=== PATIENT | female | born 1985 | race Caucasian/White ===

== ENCOUNTER → 2017-08-13 | Outpatient (CLI) | payer BC ==
--- NOTE | 2017-08-13 08:25 | US ---
EXAMINATION TYPE: US liver DATE OF EXAM: 08/13/2017 COMPARISON: CT chest dated 02/07/2014 and ultrasound liver dated 03/01/2014. CLINICAL HISTORY: D18.09 Hemangioma of other sites. EXAM MEASUREMENTS: Liver Length: 15.8 cm Gallbladder Wall: 0.2 cm CBD: 0.2 cm Right Kidney: 10.8 x 5.3 x 5.1 cm Pancreas: wnl Liver: subtle echogenic area noted at right lobe near IVC measures 3.2 x 2.8 x 3.1 cm and previously measured 3.1 x 2.0 x 2.3 cm on the prior exam of 03/01/2014. Gallbladder: wnl Evidence for sonographic Ramirez's sign: no CBD: wnl Right Kidney: wnl IMPRESSION: Interval growth of the hyperechoic hepatic mass within the medial aspect of segment 8 of the liver near the intrahepatic inferior vena cava. Again CT characteristics are not compatible with a typical hemangioma. Therefore three-phase CT abdomen (liver mass protocol) or MRI are recommended f or further characterization.
== END | disposition home or self-care (01) ==
LOC: RADUSWWP 07:03
PROVIDERS: ATTEND Family Medicine
DX: D18.09 Hemangioma of other sites (principal)
CPT/HCPCS: 76705

== ENCOUNTER → 2017-09-03 | Outpatient (CLI) | payer BC ==
--- NOTE | 2017-09-03 23:36 | MR ---
EXAMINATION TYPE: MR liver wo/w con DATE OF EXAM: 09/03/2017 COMPARISON: NONE HISTORY: Refer to US of Liver, Gadavist 7.0 follow-up liver lesion seen on ultrasound exam. CONTRAST: Standard multiplanar, multisequence MRI departmental protocol utilizing 7.0 mL intravenous Gadavist g adolinium contrast. FINDINGS: On the T2 images there is a 8 mm area of increased echogenicity in the left lobe of the elaine er. There is a similar 12 mm focus in the anterior right lobe of the liver. There is a similar 16 mm focus in the central right lobe of the liver. The bile ducts are not dilated. Spleen appears normal. Kidneys have normal size and contour. There is no hydronephrosis. Gallbladder appears normal. Pancrea s appears normal. There is no ascites. There is no pathologic enhancement. No discrete liver abnormal ity is identified on the T1-weighted images. There is no adrenal mass. IMPRESSION: There is a 3 cm area of increased echogenicity in the right lobe of the liver on the recent ultrasoun d exam of 08/13/2017. This exam fails to characterize this ultrasound finding. There are on the T2 imag es 3 subtle foci in the liver with increased signal that are not characterized or seen on the other i mages and are of doubtful significance. The ultrasound finding 3 cm could relate to area of focal fat ty infiltration. I do not think any further surveillance is needed.
== END | disposition home or self-care (01) ==
LOC: RADMRIMAIN 20:08
PROVIDERS: ATTEND Family Medicine
DX: R93.2 Abnormal findings on diagnostic imaging of liver and biliary tract (principal)
CPT/HCPCS: 74183; A9581

== ENCOUNTER → 2021-05-31 | Outpatient (CLI) | payer OTHER ==
--- NOTE | 2021-05-31 10:42 | US ---
EXAMINATION TYPE: Ultrasound OB <= 14 week fetus DATE OF EXAM: 05/31/2021 7:39 AM COMPARISON: NONE CLINICAL HISTORY: 36-year-old female Z36.89 Confirm dates. EXAM PERFORMED: Transabdominal (TA) FINDINGS: EXAM MEASUREMENTS: GESTATIONAL AGE / DATING Physician Established: Not established ( Dates by LMP: (8 weeks/1 days) EDC: 01/09/22 Dates by First Scan: No previous Dates by Current Scan for: (8 weeks/ 5 days) EDC: 01/07/22 MATERNAL ANATOMY Uterus: 12.2 x 5.8 x5.0 cm Right Ovary: 3.7 x 2.2 x 2.2 cm Left Ovary: 2.0 x 3.0 x 2.4 cm Post CDS / Adnexa: No gross abnormality Presence of free fluid: None Presence of corpus luteal cyst: Yes, on right = 2.0 x 1.8 x 1.9 cm Presence of subchorionic bleed: small, 6mm inferior to gestational sac GESTATION / SURVEY CRL: 2.2 (8 weeks/ 6 days) MSD: 2.7 ( 8 weeks/0 days) Yolk Sac (normal less than 6mm): 0.5 cm Heart Rate: 167 bpm Rhythm: Normal IUP: Viable IUP Date of LMP: 04/04/21 IMPRESSION: 1. Single live intrauterine with estimated gestational age of 8 weeks 1 day by LMP. Current ultrasound biometry is concordant (8 weeks 5 days) by CRL. 2. Tiny 6 mm perigestational bleed along the inferior margin of the gestational sac. 3. A 2.0 cm corpus luteum of the right ovary. 4. Complete survey recommended at 18-20 weeks.
== END | disposition home or self-care (01) ==
LOC: RADUSWWP 07:06
PROVIDERS: ATTEND Obstetrics & Gynecology
DX: Z36.89 Encounter for other specified antenatal screening (principal); Z3A.08 8 weeks gestation of pregnancy
CPT/HCPCS: 76801

== ENCOUNTER → 2021-08-16 | Outpatient (CLI) | payer OTHER ==
--- NOTE | 2021-08-16 15:59 | US ---
EXAMINATION TYPE: US OB anatomy transabd DATE OF EXAM: 08/16/2021 COMPARISON: 05/31/2021 HISTORY: 36-year-old female O36.62X0 LARGE FOR DATES. G1. TECHNIQUE: Transabdominal (TA) Utility System Repairer: DEIRDRE/GRIS FINDINGS: EXAM MEASUREMENTS: GESTATIONAL AGE / DATING Physician Established: Not yet established. Dates by LMP: (19 weeks/1 day) EDC: 01/09/2022 Dates by First Scan: (19 weeks/3 days) EDC: 01/07/2022 Dates by Current Scan for: (19 weeks/4 days) EDC: 01/06/2022 SURVEY IUP: Single PLACENTA: Posterior. Hypoechoic area seen: 1.5 x 1.2 x 1.2 cm. PREVIA: Either low lying or marginal placenta previa. On post void, the inferior placental margin see ms to measure 1 cm from the internal cervical os. TIARA: 12.5 cm Normal CERVICAL LENGTH (transabdominal: norm > 3.0cm): 4.1 cm BIOMETRY PRESENTATION: Variable LIE: Transverse lie with head maternal Left, although variable position throughout exam. BPD: 4.54 cm 19 weeks / 5 days HC: 16.55 cm 19 weeks / 2 days AC: 15.22 cm 20 weeks / 3 days FL: 3.19 cm 19 weeks / 6 days ESTIMATED WEIGHT IN GRAMS: 331.66 grams ESTIMATED WEIGHT IN LBS/OZ: 0 lbs. 12 oz. WEIGHT PERCENTAGE BASED ON ESTABLISHED DATE: 82.5 % HC/AC: 1.09 Normal FL/AC: 20.98 HEART RATE: 157 bpm RHYTHM: Normal ANATOMY SEEN (within normal limits): Lateral Vent (< 1 cm) 0.73 cm Cisterna Magna (< 1.1 cm) 0.60 cm Nuchal Fold (< 0.6 cm) 0.36 cm Cerebellum (varies with age) 1.93 cm Choroid Plexus (bilateral) Midline Falx Cavus Septi Pellucidi Four Chamber Heart Outflow tracts: LVOT/RVOT Stomach Situs Nose / Lips Diaphragm Kidneys (bilateral) Bladder Cord Insert Three Vessel Cord Longitudinal Spine Transverse Spine Arms (bilateral) Legs (bilateral) IMPRESSION: 1. Single living intrauterine with estimated gestational age of 19 weeks 1 day by LMP. Curr ent ultrasound biometry is concordant at 19 weeks 4 days (82.5% EFW). 2. Posterior placenta with low-lying to marginal placenta previa. On postvoid, the inferior placental tip measures approximately 1 cm from the internal cervical os. 3. A 1.5 cm hypoechoic area within the substance of the placenta. Possible venous marlow or chorioangio ma. Attention on follow-up. 4. The visualized structures appear normal.
== END | disposition home or self-care (01) ==
LOC: RADUSWWP 08:19
PROVIDERS: ATTEND Obstetrics & Gynecology
DX: O36.62X0 Maternal care for excessive fetal growth, second trimester, not applicable or unspecified (principal); Z3A.19 19 weeks gestation of pregnancy
CPT/HCPCS: 76811

== ENCOUNTER → 2021-11-16 | Outpatient (CLI) | payer OTHER ==
--- NOTE | 2021-11-16 10:20 | US ---
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 4 oz. WEIGHT PERCENTAGE BASED ON ESTABLISHED DATES: 93% HC/AC: 1.0 Normal FL/AC: 22 Normal HEART RATE: 149 bpm RHYTHM: Normal IMPRESSION: Single viable intrauterine .
== END | disposition home or self-care (01) ==
LOC: RADUSWWP 09:34
PROVIDERS: ATTEND Obstetrics & Gynecology
DX: O44.43 Low lying placenta NOS or without hemorrhage, third trimester (principal); O36.63X0 Maternal care for excessive fetal growth, third trimester, not applicable or unspecified; Z3A.35 35 weeks gestation of pregnancy
CPT/HCPCS: 76805

== ENCOUNTER → 2021-12-07 | Outpatient (CLI) | payer OTHER ==
--- NOTE | 2021-12-07 10:14 | US ---
EXAMINATION TYPE: US OB >= 14 wk fetus DATE OF EXAM: 12/07/2021 COMPARISON: Multiple US's, most recent dated 11/16/2021 CLINICAL HISTORY: O44.43 LOW LYING DEBRA,O36.63X0 EXCESS GROWTH, TECHNIQUE: Transabdominal (TA) GESTATIONAL AGE / DATING Physician Established: (35 weeks/2 days) EDC: 01/09/2022 Dates by LMP: (35 weeks/2 days) EDC: 01/09/2022 Dates by First Scan: (35 weeks/4 days) EDC: 01/07/2022 Dates by Current Scan: (37 weeks/2 days) EDC: 12/26/2021 SURVEY IUP: Single PLACENTA: Posterior PREVIA: No Previa TIARA: 16.2 cm Normal CERVICAL LENGTH (transabdominal: norm > 3.0cm): 3.5 cm BIOMETRY PRESENTATION: Vertex BPD: 9.2 cm 37 weeks / 3 days HC: 32.8 cm 37 weeks / 2 days AC: 34.4 cm 38 weeks / 3 days FL: 7.0 cm 36 weeks / 0 days ESTIMATED WEIGHT IN GRAMS: 3233 grams ESTIMATED WEIGHT IN LBS/OZ: 7 lbs. 2 oz. WEIGHT PERCENTAGE BASED ON ESTABLISHED DATES: 95% HC/AC: 0.95 Normal FL/AC: 20 Normal HEART RATE: 136 bpm RHYTHM: Normal Single viable IUP that measures two weeks ahead of patient's EDC. IMPRESSION: 1. Single intrauterine gestation estimated at 37 weeks 2 days gestation based on current ultrasound m easurements. 2. Cephalic presentation fetus with a heart rate measuring 136 bpm. 3. Estimated weight is 3233 g based on current measurements. This is within the 95th percentile .
== END | disposition home or self-care (01) ==
LOC: RADUSWWP 09:34
PROVIDERS: ATTEND Obstetrics & Gynecology
DX: O36.63X0 Maternal care for excessive fetal growth, third trimester, not applicable or unspecified (principal); O44.43 Low lying placenta NOS or without hemorrhage, third trimester; Z3A.37 37 weeks gestation of pregnancy
CPT/HCPCS: 76805

== ENCOUNTER → 2022-01-01 | Outpatient (CLI) | payer OTHER ==
--- NOTE | 2022-01-01 12:23 | US ---
EXAMINATION TYPE: US OB >= 14 wk fetus DATE OF EXAM: 01/01/2022 COMPARISON: CLINICAL HISTORY: O36.63X0 MATERNAL CARE FOR EXCESS GROWTH, TH TECHNIQUE: GESTATIONAL AGE / DATING Physician Established: (38 weeks/6 days) EDC: 01-09-22 Dates by LMP: (38 weeks/ 6 days) EDC: 01-09-22 Dates by First Scan: (39 weeks/1 days) EDC: 01-07-22 Dates by Current Scan: (39 weeks/1 days) EDC: 01-07-22 SURVEY IUP: Single PLACENTA: Fundal PREVIA: No Previa TIARA: 10.4 cm CERVICAL LENGTH (transabdominal: norm > 3.0cm): 3.2 cm BIOMETRY PRESENTATION: Vertex BPD: 9.4 cm 39 weeks / 0 days HC: 35.7 cm not registering on machine AC: 38.4 cm not registering on machine FL: 7.7 cm 39 weeks / 1 days ESTIMATED WEIGHT IN GRAMS: 4343 grams ESTIMATED WEIGHT IN LBS/OZ: 9 lbs. 9 oz. WEIGHT PERCENTAGE BASED ON ESTABLISHED DATES: >98% HC/AC: 0.93 FL/AC: 20 HEART RATE: 152 bpm RHYTHM: Normal Baby measures large for gestational age. IMPRESSION: Suspected macrosomia.
== END | disposition home or self-care (01) ==
LOC: RADUSWWP 09:33
PROVIDERS: ATTEND Obstetrics & Gynecology
DX: O36.63X0 Maternal care for excessive fetal growth, third trimester, not applicable or unspecified (principal); Z3A.38 38 weeks gestation of pregnancy
CPT/HCPCS: 76805

== ENCOUNTER 2022-01-14 06:00 | Inpatient (IN) | payer OTHER ==
--- NOTE | 2022-01-13 19:34 | P.HPOB ---
History of Present Illness H&P Date: 01/13/22 Chief Complaint: Inducion of labor This is a 36 y.o. female, 1, para 0, with an estimated date of confinement of 01/09/2022, estimated gestational age of 40-5/7 weeks, who presents for induction of labor. She has irregular contractions and pressure. Estimated weight is 4343 grams or 9#9oz (98%) on 01/03/2022. She's aware of the risk of shoulder dystocia and declines section. labs: Hepatitis B surface antigen-neg RPR-NR Rubella-immune Blood type-O+ Antibody screen-neg HIV-NR Hemoglobin-13.4 Toxoplasma-neg Random glucose-86 GC/Chlamydia/Trich-neg [id number] 1 hr. 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 Past Surgical History: No Surgical Hx Reported Past Anesthesia/Blood Transfusion Reactions: No Reported Reaction Past Psychological History: No Psychological Hx Reported Smoking Status: Never smoker Past Alcohol Use History: Occasional Past Drug Use History: None Reported - Past Family History Mother Family Medical History: Hypertension Medications and Allergies Home Medications Medication Instructions Recorded Confirmed Type Vit No.179/Iron/Folic 1 each PO 01/13/22 History [ Tablet] Allergies Allergy/AdvReac Type Severity Reaction Status Date / Time No Known Allergies Allergy Verified 01/13/22 19:24 Exam Osteopathic Statement: *. No significant issues noted on an osteopathic structural exam other than those noted in the History and Physical/Consult. HEENT: within normal limits Heart: regular rate and rhythm Lungs: clear to auscultation bilaterally Abdomen: Cervix: 1 cm/70%/-2 heart tones: 140's by doppler Extremities: neg. Maria Esther's Assessment and Plan (1) 40 weeks gestation of Status: Acute Code(s): Z3A.40 - 40 WEEKS GESTATION OF SNOMED Code(s): 25057039 (2) macrosomia Status: Acute Code(s): O36.60X0 - MATERNAL CARE FOR EXCESS GROWTH, UNSP TRIMESTER, UNSP SNOMED Code(s): 55940251 (3) Post-dates Status: Acute Code(s): O48.0 - POST-TERM SNOMED Code(s): 54978571 Plan: Proceed with oxytocin induction of labor. Expectant management. Epidural anesthesia if desired. Patient was counseled in detail regarding potential risk for shoulder dystocia and subsequent consequences for baby and mother and was offered section due to macrosomia >90%. She declined section and wishes to proceed with induction of labor for post-dates. She will consider section if any labor dystocia occurs.
[2022-01-14] MEDS ORDERED: METHYLERGONOVINE 0.2 MG/ML 1 ML AMP IM PRN (06:14)
[2022-01-14] MEDS ORDERED: LIDOCAINE 0.5% (PF) 5 MG/ML (50 ML SDV) SQ PRN (06:14)
[2022-01-14] MEDS ORDERED: CARBOPROST TROMETHAMINE 250 MCG/ML 1 ML AMP IM PRN (06:14)
[2022-01-14] MEDS ORDERED: LIDOCAINE 1% (10MG/ML) FOR IV START INTRADERMA PRN (06:14)
[2022-01-14] MEDS ORDERED: OXYTOCIN 30 UNITS/500 ML NS 30 UNIT in SALINE 1 500ML.BAG IV SCH (06:14)
[2022-01-14] MEDS ORDERED: TERBUTALINE 1 MG/ML VIAL SQ PRN (06:14)
[2022-01-14] MEDS ORDERED: OXYTOCIN 10 UNIT/ML 1 ML VIAL IM PRN (06:14)
[2022-01-14] MEDS: LACTATED RINGERS 1,000 ML IV SCH ×3 (06:43→23:16)
[2022-01-14 06:54] LABS: Basophils # (A) 0.1 k/uL (0-0.2); Basophils % (A) 1 %; Eosinophils # (A) 0.1 k/uL (0-0.7); Eosinophils % (A) 1 %; HCT 38.4 % (34.0-46.0); HGB 13.2 gm/dL (11.4-16.0); Lymphocytes # (A) 2.4 k/uL (1.0-4.8); Lymphocytes % (A) 27 %; MCH 30.2 pg (25.0-35.0); MCHC 34.3 g/dL (31.0-37.0); MCV 87.8 fL (80.0-100.0); Mean Platelet Volume 9.5; Monocytes # (A) 0.4 k/uL (0-1.0); Monocytes % (A) 5 %; Neutrophils # (A) 5.8 k/uL (1.3-7.7); Neutrophils % (A) 65 %; Platelet Count 189 k/uL (150-450); RBC 4.37 m/uL (3.80-5.40); RDW 13.5 % (11.5-15.5)
[2022-01-15] MEDS ORDERED: AMPICILLIN 2,000 MG in SODIUM CHLORIDE 0.9% 100 ML IVPB ONE (02:30)
--- NOTE | 2022-01-15 04:23 | P.PROBDLV ---
Vaginal Delivery Note - . Vaginal Delivery Note: The patient underwent oxytocin induction of labor and artificial rupture membranes with meconium fluid noted. Her latent phase was rather protracted but once she reached approximately 4 cm she began making faster change. She did receive epidural anesthesia. Once reaching complete, she began pushing. 's head came to a crown. At this point a midline episiotomy was cut after anesthetizing the perineum with 1% lidocaine. This was cut due to a very tight perineum and expectation of a very large head. Extra staff was present in the room due to macrosomia and risk of possible shoulder dystocia. PERSONNEL GENERALIST MANAGER was present due to meconium. With one further push, the infant's head delivered across the perineum in a left occiput anterior lie followed immediately by the anterior shoulder and remainder of the body. Nose and mouth were bulb suctioned after delivery and infant was placed on mother's abdomen. Brisk cry was noted immediately. Infant was taken to warmer for evaluation. A viable female infant was noted with scores of 8 at 1 minute and 9 at 5 minutes and weight of 8#14oz. Inspection of the perineum revealed a midline episiotomy with no further extension. This area was anesthesized with 1% lidocaine and sutured with 3-0 and 2-0 vicryl in the usual multilayer fashion. Estimated blood loss was 200 cc. Both mother and infant are in stable condition.
[2022-01-15] MEDS ORDERED: SIMETHICONE 80 MG CHEWABLE PO PRN (05:24)
[2022-01-15] MEDS ORDERED: diphenhydrAMINE 50 MG/ML 1 ML VIAL IVP PRN ×2 (05:24)
[2022-01-15] MEDS ORDERED: LANOLIN CREAM 5 GM TUBE TOPICAL PRN (05:24)
[2022-01-15] MEDS ORDERED: diphenhydrAMINE 25 MG CAP PO PRN (05:24)
[2022-01-15] MEDS ORDERED: HYDROCORTISONE 2.5% RECTAL CREAM 30 GM TUBE RECTAL PRN (05:24)
[2022-01-15] MEDS ORDERED: diphenhydrAMINE 50 MG CAP PO PRN (05:24)
[2022-01-15] MEDS ORDERED: OXYTOCIN 30 UNITS/500 ML NS 30 UNIT in SALINE 1 500ML.BAG IV SCH (05:24)
[2022-01-15] MEDS ORDERED: BENZOCAINE/MENTHOL SPRAY 1 GM/SPRAY AEROSOL TOPICAL PRN (05:24)
[2022-01-15] MEDS ORDERED: ZOLPIDEM 5 MG TAB PO PRN (05:24)
[2022-01-15] MEDS: IBUPROFEN 600 MG TAB PO PRN ×3 (05:48→18:19)
[2022-01-15] MEDS ORDERED: AMPICILLIN 1,000 MG in SODIUM CHLORIDE 0.9% 50 ML IVPB SCH (06:30)
[2022-01-15] MEDS: PRENATAL VIT-IRON-FOLIC ACID 1 EACH TABLET PO SCH (09:04)
[2022-01-15] MEDS: ACETAMINOPHEN TAB 325 MG TAB PO PRN ×2 (09:04→20:28)
[2022-01-15] MEDS: SENNOSIDES-DOCUSATE SODIUM 1 EACH TAB PO SCH ×2 (09:04→20:29)
[2022-01-15 16:14] VITALS: RESP 16
[2022-01-16] MEDS: IBUPROFEN 600 MG TAB PO PRN ×3 (03:55→19:59)
[2022-01-16 05:58] LABS: Basophils # (A) 0.1 k/uL (0-0.2); Basophils % (A) 0 %; Eosinophils # (A) 0.2 k/uL (0-0.7); Eosinophils % (A) 1 %; HCT 33.4 % (34.0-46.0); HGB 11.3 gm/dL (11.4-16.0); Lymphocytes # (A) 2.5 k/uL (1.0-4.8); Lymphocytes % (A) 15 %; MCH 30.1 pg (25.0-35.0); MCHC 33.7 g/dL (31.0-37.0); MCV 89.2 fL (80.0-100.0); Mean Platelet Volume 9.9; Monocytes # (A) 0.7 k/uL (0-1.0); Monocytes % (A) 4 %; Neutrophils # (A) 12.5 k/uL (1.3-7.7); Neutrophils % (A) 77 %; Platelet Count 178 k/uL (150-450); RBC 3.75 m/uL (3.80-5.40); RDW 13.9 % (11.5-15.5); WBC 16.2 k/uL (3.8-10.6)
--- NOTE | 2022-01-16 08:04 | P.PNOBGVD ---
Subjective - Subjective Principal diagnosis: Status post vaginal delivery day #1 Interval history: Patient is doing okay. She is working on breast-feeding. Lochia is now slowing a little bit. She is sore but is keeping up with her ibuprofen and Tylenol. Baby needs to stay 1 more day for blood cultures. Patient reports: Reports appetite normal, Reports voiding normally, Reports pain well controlled, Reports ambulating normally : doing well, nursing well Objective - Latest Vital Signs Latest vital signs: Vital Signs Temp Pulse Resp BP Pulse Ox 01/15/22 22:32 98.1 F 85 16 130/82 01/15/22 14:00 98.1 F 93 16 118/79 99 01/15/22 12:00 97.9 F 79 16 123/74 100 Intake and Output 01/15/22 01/16/22 01/16/22 22:59 06:59 14:59 Intake Total 480 Balance 480 Intake: Oral 480 Other: # Voids 2 - Exam Extremities: Present: normal. Absent: tenderness Abdomen: Present: normal appearance, soft. Absent: distention, tenderness Uterus: Present: normal, firm. Absent: tenderness - Labs Labs: Abnormal Lab Results - Last 24 Hours (Table) 01/16/22 Range/Units 05:46 WBC 16.2 H (3.8-10.6) k/uL RBC 3.75 L (3.80-5.40) m/uL Hgb 11.3 L (11.4-16.0) gm/dL Hct 33.4 L (34.0-46.0) % Neutrophils # 12.5 H (1.3-7.7) k/uL Assessment and Plan Assessment: Status post vaginal delivery day #1 (1) 40 weeks gestation of Current Visit: No Status: Acute Code(s): Z3A.40 - 40 WEEKS GESTATION OF SNOMED Code(s): 98078735 (2) macrosomia Current Visit: No Status: Acute Code(s): O36.60X0 - MATERNAL CARE FOR EXCESS GROWTH, UNSP TRIMESTER, UNSP SNOMED Code(s): 35660656 (3) Post-dates Current Visit: No Status: Acute Code(s): O48.0 - POST-TERM SNOMED Code(s): 28488180 Plan: Continue with care today. Anticipate discharge home tomorrow. Will work with breast-feeding hr shared services consultant today.
[2022-01-16] MEDS: SENNOSIDES-DOCUSATE SODIUM 1 EACH TAB PO SCH ×2 (09:11→20:00)
[2022-01-16] MEDS: ACETAMINOPHEN TAB 325 MG TAB PO PRN ×2 (13:59→22:36)
[2022-01-16] MEDS: PRENATAL VIT-IRON-FOLIC ACID 1 EACH TABLET PO SCH (20:01)
--- NOTE | 2022-01-17 07:22 | P.DS ---
Providers Date of admission: 01/14/22 06:00 Expected date of discharge: 01/17/22 Attending physician: Rupinder Chance Primary care physician: Stated None - Discharge Diagnosis(es) (1) 40 weeks gestation of Current Visit: No Status: Acute (2) macrosomia Current Visit: No Status: Acute (3) Post-dates Current Visit: No Status: Acute Hospital Course: This 36-year-old female 1 para 0 at 40-5/7 weeks who initially presented for oxytocin induction of labor on 01/14/2022. She underwent oxytocin induction of labor and did receive epidural anesthesia. She delivered vaginally on 01/15/2022 of a viable female with scores of 8 at 1 minute and 9 at 5 minutes and infant weight of 8 lbs. 14 oz. Her course has been uncomplicated. Lochia has been decreasing. Her pain is improving. Vital signs are stable. She is breast-feeding. Abdomen is soft with fundus firm and nontender. Extremities show negative Homans. Impression is status post vaginal delivery day #2. Plan is to discharge home today. Routine post instructions are given. She is advised follow-up in the office in 6 weeks for a check. She will be given a prescription for ibuprofen. She has a breast pump at home. She is advised to call the office if she has any further questions or concerns prior to her appointment time. Procedures: Oxytocin induction of labor spontaneous vaginal delivery of a viable female on 01/15/2022 Patient Condition at Discharge: Stable Plan - Discharge Summary New Discharge Prescriptions: New Ibuprofen [Motrin] 600 mg PO Q6HR PRN #60 tab PRN Reason: Mild Pain (Scale 1 To 3) Continue Vit No.179/Iron/Folic [ Tablet] 1 each PO DAILY Discharge Medication List Vit No.179/Iron/Folic [ Tablet] 1 each PO DAILY 01/13/22 [History] Ibuprofen [Motrin] 600 mg PO Q6HR PRN #60 tab 01/17/22 [Rx] Follow up Appointment(s)/Referral(s): Rupinder Chance DO [Doctor of Osteopathic Medicine] - 02/25/22 11:30 am Activity/Diet/Wound Care/Special Instructions: Instructions 1. Do not begin any exercise program for 3 weeks. 2. Do not resume sexual relations for 3 weeks or longer if uncomfortable. 3. You may take tub baths or showers at any time. 4. You may use tampons if desired after 3 weeks. 5. Keep the area of episiotomy (stitches) clean and dry. 6. If you are not nursing, wear a good fitting, supportive bra during the day and limit fluid intake for at least 1 week to prevent breast engorgement. 7. Call the office, [phone], within the next week to make appointment for your 6 week checkup if it has not already been made. 8. Report any of the following occurrences to the doctor promptly: a. Heavy, excessive bleeding b. Chills, fever c. Burning or frequency of urination d. Pain or redness and breasts if nursing e. Increasing pain or swelling in episiotomy (stitches). In addition to the above instructions, the following additional should be followed: 1. No heavy lifting or straining (exercising) until after 6 week checkup. 2. Keep abdominal incision clean and dry: You may wear a dressing if more comfortable. 3. Make office appointment for 10 days after going home or as instructed by her doctor. Discharge Disposition: HOME SELF-CARE
[2022-01-17] MEDS: PRENATAL VIT-IRON-FOLIC ACID 1 EACH TABLET PO SCH (10:56)
[2022-01-17] MEDS: SENNOSIDES-DOCUSATE SODIUM 1 EACH TAB PO SCH (10:56)
[2022-01-17 11:02] VITALS: BP 123/84; PULSE 89; TEMP 97.8
== END 2022-01-17 13:45 | disposition home or self-care (01) | DRG 805 ==
LOC: 4FBP 06:00
PROVIDERS: ADMIT Obstetrics & Gynecology; ATTEND Obstetrics & Gynecology
PROC: 10E0XZZ Delivery of Products of Conception, External Approach (ICD-10-PCS; principal; 2022-01-15)
PROC: 3E033VJ Introduction of Other Hormone into Peripheral Vein, Percutaneous Approach (ICD-10-PCS; 2022-01-15)
PROC: 10907ZC Drainage of Amniotic Fluid, Therapeutic from Products of Conception, Via Natural or Artificial Opening (ICD-10-PCS; 2022-01-15)
DX: O36.63X0 Maternal care for excessive fetal growth, third trimester, not applicable or unspecified (principal); O41.1230 Chorioamnionitis, third trimester, not applicable or unspecified; Z37.0 Single live birth; O77.0 Labor and delivery complicated by meconium in amniotic fluid; Z3A.40 40 weeks gestation of pregnancy; O48.0 Post-term pregnancy
CPT/HCPCS: 85025; 86850; 86900; 86901; 88307